=== PATIENT | female | born 1995 | race Caucasian/White ===

== ENCOUNTER → 2024-11-11 11:49 | Outpatient (REF) | payer MEDICAID, SELFPAY ==
--- NOTE | 2024-11-11 09:01 | PN.DIAED06 ---
Meal Plan - Gestational
- Breakfast
Gestational Diabetes Meal Plan Name: 2000 calories
Breakfast - Total Carbohydrate (grams): 45 (1 carb = 15 grams)
Breakfast - Starch Carbohydrate: 2 (carbs: starch, milk, fruit)
Breakfast - Fruit Carbohydrate: 0 (no fruit before noon)
Breakfast - Milk Carbohydrate: 1
Breakfast - Nonstarchy Vegetables: Yes
Breakfast - Meat/Protein: 1 (1 serving protein = 7 g)
Breakfast - Fat: 2 (1 serving fat = 5 g)
- Morning Snack
Morning Snack - Total Carbohydrate (grams): 30
Morning Snack - Starch Carbohydrate: 1
Morning Snack - Fruit Carbohydrate: 0 (no fruit before noon)
Morning Snack - Milk Carbohydrate: 1
Morning Snack - Nonstarchy Vegetables: Yes
Morning Snack - Meat/Protein: 0
Morning Snack - Fat: 0
- Lunch
Lunch - Total Carbohydrate (grams): 45
Lunch - Starch Carbohydrate: 1
Lunch - Fruit Carbohydrate: 1
Lunch - Milk Carbohydrate: 1
Lunch - Nonstarchy Vegetables: Yes
Lunch - Meat/Protein: 2
Lunch - Fat: 2
- Afternoon Snack
Afternoon Snack - Total Carbohydrate (grams): 30
Afternoon Snack - Starch Carbohydrate: 1
Afternoon Snack - Fruit Carbohydrate: 1
Afternoon Snack - Milk Carbohydrate: 0
Afternoon Snack - Nonstarchy Vegetables: Yes
Afternoon Snack - Meat/Protein: 1
Afternoon Snack - Fat: 0
- Dinner
Dinner - Total Carbohydrate (grams): 45
Dinner - Starch Carbohydrate: 2
Dinner - Fruit Carbohydrate: 1
Dinner - Milk Carbohydrate: 0
Dinner - Nonstarchy Vegetables: Yes
Dinner - Meat/Protein: 2
Dinner - Fat: 2
- Evening Snack
Evening Snack - Total Carbohydrate (grams): 45
Evening Snack - Starch Carbohydrate: 1
Evening Snack - Fruit Carbohydrate: 1
Evening Snack - Milk Carbohydrate: 1
Evening Snack - Nonstarchy Vegetables: Yes
Evening Snack - Meat/Protein: 1
Evening Snack - Fat: 0
--- NOTE | 2024-11-11 10:04 | PN.DIAED06 ---
Meal Plan - Gestational
- Breakfast
Gestational Diabetes Meal Plan Name: 1800 calories
Breakfast - Total Carbohydrate (grams): 30
Breakfast - Starch Carbohydrate: 1
Breakfast - Fruit Carbohydrate: 0
Breakfast - Milk Carbohydrate: 1
Breakfast - Nonstarchy Vegetables: Yes
Breakfast - Meat/Protein: 1
Breakfast - Fat: 2
- Morning Snack
Morning Snack - Total Carbohydrate (grams): 30
Morning Snack - Starch Carbohydrate: 1
Morning Snack - Fruit Carbohydrate: 0
Morning Snack - Milk Carbohydrate: 1
Morning Snack - Nonstarchy Vegetables: Yes
Morning Snack - Meat/Protein: 0.5
Morning Snack - Fat: 0
- Lunch
Lunch - Total Carbohydrate (grams): 45
Lunch - Starch Carbohydrate: 2
Lunch - Fruit Carbohydrate: 1
Lunch - Milk Carbohydrate: 0
Lunch - Nonstarchy Vegetables: Yes
Lunch - Meat/Protein: 2
Lunch - Fat: 1
- Afternoon Snack
Afternoon Snack - Total Carbohydrate (grams): 30
Afternoon Snack - Starch Carbohydrate: 1
Afternoon Snack - Fruit Carbohydrate: 1
Afternoon Snack - Milk Carbohydrate: 0
Afternoon Snack - Nonstarchy Vegetables: Yes
Afternoon Snack - Meat/Protein: 1
Afternoon Snack - Fat: 0
- Dinner
Dinner - Total Carbohydrate (grams): 45
Dinner - Starch Carbohydrate: 2
Dinner - Fruit Carbohydrate: 0
Dinner - Milk Carbohydrate: 1
Dinner - Nonstarchy Vegetables: Yes
Dinner - Meat/Protein: 2
Dinner - Fat: 2
- Evening Snack
Evening Snack - Total Carbohydrate (grams): 30
Evening Snack - Starch Carbohydrate: 1
Evening Snack - Fruit Carbohydrate: 0
Evening Snack - Milk Carbohydrate: 1
Evening Snack - Nonstarchy Vegetables: Yes
Evening Snack - Meat/Protein: 1
Evening Snack - Fat: 1
--- NOTE | 2024-11-11 10:58 | PN.DE ---
Diabetes Education
- -
11/11/2024 GESTATIONAL DIABETES CONSULT
Met with Ms. Rivero today for medical nutrition therapy. She is G1,P1 with an EWA of 12/14/2024
Explained glucose metabolism in body and what occurs during to cause increase blood sugar. Discussed importance of keeping BS well controlled to avoid complications to the baby during and after (macrosomia, hypoglycemia).
Discussed macronutrients, provided with 1800 carly GDM meal plan. Discussed physical activity, she walks her dog 30 minutes a day.
She states she also changed diet since finding out she has GSD. She has been eating a lot of salad, lean protein, non starchy vegetables.
I provided with a Contour Next glucometer kit. Reviewed proper testing technique, testing sites and testing pattern. She is aware to test FBS and 2 hr pp each meal. Expected results for FBS <95 mg/dl and 2 hr pp <120 mg/dl. Noted for blood sugar of
130 mg/dl 2 hr after breakfast this morning, she had an egg salad sandwich with white bread from a convenience store. Log sheet provided for her to record results, she will send a 3-day meal log with all her FBG and 2hr Post prandial glucose numbers
to this office for review. In addition, she will send all her glucose readings [facility] every Friday; she will be calling them today for an appointment.
She also mentioned she has HTN, has only been treated upon . States her last BS was 132/70's.
She will contact this office later today with her insurance card information. I explained we can submit an order for glucose testing supplies to her pharmacy ([facility] on [address] in [place]) once we have her insurance information. Also directed
her to [employer] glucose testing supplies if needed; explained she should purchase 150 test strips and lancets to last through delivery.
She was encouraged to reach out with any questions and if should she require insulin.
== END ==
LOC: DES 11:49
PROVIDERS: ATTENDING PHYSICIAN Obstetrics & Gynecology
DX: O24.419 Gestational diabetes mellitus in pregnancy, unspecified control (principal)
CPT/HCPCS: 99078

== ENCOUNTER → 2024-11-16 15:22 | Outpatient (REF) | payer MEDICAID, SELFPAY | LOC: PNTC 15:22 | PROVIDERS: ATTENDING PHYSICIAN Obstetrics & Gynecology | DX: O99.210 Obesity complicating pregnancy, unspecified trimester (principal); I11.9 Hypertensive heart disease without heart failure; O24.419 Gestational diabetes mellitus in pregnancy, unspecified control | CPT/HCPCS: 76815 ==

== ENCOUNTER → 2024-11-23 15:43 | Outpatient (REF) | payer MEDICAID, SELFPAY | LOC: PNTC 15:43 | PROVIDERS: ATTENDING PHYSICIAN Obstetrics & Gynecology | DX: O99.210 Obesity complicating pregnancy, unspecified trimester (principal); I10 Essential (primary) hypertension; O24.419 Gestational diabetes mellitus in pregnancy, unspecified control | CPT/HCPCS: 36415; 59025; 76818 ==

== ENCOUNTER → 2024-11-30 16:13 | Outpatient (REF) | payer MEDICAID, SELFPAY | LOC: PNTC 16:13 | PROVIDERS: ATTENDING PHYSICIAN Obstetrics & Gynecology | DX: O99.210 Obesity complicating pregnancy, unspecified trimester (principal); I10 Essential (primary) hypertension; O24.419 Gestational diabetes mellitus in pregnancy, unspecified control | CPT/HCPCS: 59025; 76818 ==

== ENCOUNTER 2024-12-06 19:47 | Inpatient (IN) | payer OTHER, SELFPAY ==
[2024-12-06 20:04] VITALS: BMI 39.2
[2024-12-06] MEDS: LR 1000 IV ×2 (20:32→22:18)
[2024-12-06 20:36] LABS: Glucose - Point of Care 156 mg/dl (70-99)
[2024-12-06 20:45] LABS: Hematocrit 35.7 % (37.0-47.0); Hemoglobin 12.6 g/dL (12.0-16.0); Mean Corp Hgb Conc. 35.3 g/dL (33.0-37.0); Mean Corpuscular Volume 89.9 fL (81.0-99.0); Nucleated Red Blood Cells % 0 %; Platelet Count 225 10^3/uL (130-400); Red Cell Dist. Width 12.6 % (11.5-14.5)
[2024-12-06 20:50] VITALS: BP 141/72
[2024-12-06 21:00] LABS: ALT (SGPT) 25 U/L (0-35); AST (SGOT) 20 U/L (14-36); Albumin 3.6 g/dl (3.5-5.0); Alkaline Phosphatase 110 U/L (38-126); Blood Urea Nitrogen 16 mg/dl (7-17); Calcium 8.9 mg/dl (8.4-10.2); Carbon Dioxide 19 mmol/L (22-30); Chloride 110 mmol/L (98-107); Estimated Creatinine Clearance > 125 ml/min; Glucose 134 mg/dl (70-99); Potassium 4.0 mmol/L (3.5-5.1); Sodium 136 mmol/L (135-145); Total Protein 6.4 g/dl (6.3-8.2); eGFR > 60.00
[2024-12-06 21:45] LABS: Glucose - Point of Care 129 mg/dl (70-99)
[2024-12-06] MEDS: CYTOTEC 25 MICROGRAM VAG (21:53)
[2024-12-06] MEDS: GLUCOPHAGE 500 MG PO (22:03)
[2024-12-06] MEDS: TRANDATE 100 MG PO (22:03)
[2024-12-07 01:46] LABS: Glucose - Point of Care 92 mg/dl (70-99)
[2024-12-07] MEDS: CYTOTEC 50 MICROGRAM PO ×4 (02:10→16:58)
[2024-12-07] MEDS: TUMS CHEWABLE TABLET 400 MG PO (02:15)
[2024-12-07] MEDS: LR 1000 IV ×4 (04:33→22:39)
[2024-12-07 05:50] LABS: Glucose - Point of Care 93 mg/dl (70-99)
[2024-12-07] MEDS: TRANDATE 100 MG PO ×2 (07:39→23:20)
[2024-12-07] MEDS: PRENATAL PLUS 1 TABLET PO (07:39)
[2024-12-07 09:50] LABS: Glucose - Point of Care 122 mg/dl (70-99)
[2024-12-07 12:08] LABS: Glucose - Point of Care 94 mg/dl (70-99)
[2024-12-07 17:50] LABS: Glucose - Point of Care 90 mg/dl (70-99)
[2024-12-07] MEDS: TRANDATE PO (20:12)
[2024-12-07 21:16] LABS: Glucose - Point of Care 86 mg/dl (70-99)
[2024-12-07] MEDS: CYTOTEC PO ×2 (22:37→23:07)
[2024-12-07] MEDS: GLUCOPHAGE 500 MG PO (22:39)
[2024-12-07] MEDS: PITOCIN 30 UNITS/NSS 500 ML IV (22:39)
[2024-12-07] MEDS: STADOL 1 MG IV (23:20)
[2024-12-07] MEDS: FLUSH (NSS) 2 FLUSH IV (23:22)
[2024-12-08 01:25] LABS: Glucose - Point of Care 90 mg/dl (70-99)
[2024-12-08 05:49] LABS: Glucose - Point of Care 96 mg/dl (70-99)
[2024-12-08] MEDS: LR 1000 IV (08:35)
[2024-12-08] MEDS: PRENATAL PLUS 1 TABLET PO (08:44)
[2024-12-08 10:03] LABS: Glucose - Point of Care 103 mg/dl (70-99)
[2024-12-08] MEDS: TRANDATE 100 MG PO ×2 (10:27→22:08)
[2024-12-08] MEDS: SUBLIMAZE 100 MCG EPIDURAL (10:53)
[2024-12-08] MEDS: FENTANYL/BUPIVACAINE 100 EPIDURAL ×2 (10:54→18:38)
[2024-12-08 14:01] LABS: Glucose - Point of Care 98 mg/dl (70-99)
[2024-12-08 17:54] LABS: Glucose - Point of Care 82 mg/dl (70-99)
[2024-12-08] MEDS: BICITRA 30 ML PO (20:06)
[2024-12-08] MEDS: TYLENOL 1000 MG PO (20:06)
[2024-12-08] MEDS: ANCEF 10 IV (20:06)
[2024-12-08] MEDS: ZITHROMAX INFUSION 250 IV (20:15)
[2024-12-08] MEDS: HEMABATE 250 MCG IM (20:43)
[2024-12-08 20:50] LABS: B.E. Cord ABG -1.2 mMOL/L; Cord ABG Comment CORD BLOOD; HCO3 Cord ABG 24.8 mmol/L; O2 Saturation % Cord ABG 58.4 %; PCO2 Cord ABG 45 mmHg; PO2 Cord ABG 28 mmHg; pH Cord ABG 7.35
[2024-12-08 20:54] LABS: B.E. Cord ABG -2.3 mMOL/L; HCO3 Cord ABG 23.7 mmol/L; O2 Saturation % Cord ABG 58.5 %; PCO2 Cord ABG 44 mmHg; PO2 Cord ABG 29 mmHg; pH Cord ABG 7.34
[2024-12-09] MEDS: TORADOL 15 MG IV ×4 (00:17→19:15)
--- NOTE | 2024-12-09 02:52 | OR.RPT ---
Operative Report
Operative Report
Date of procedure: 12/08/2024
Preop diagnosis: IUP @39.1, GDMA2, chronic HTN, non-reassuring heart tones
Postop diagnosis: same
Procedure: Primary low transverse section
Surgeon: Dejuan
Anesthesia: Epidural, [place]
QBL: 995mL
Findings: viable female born at 2032, Apgars 8/8, uterine atony responded to Hemabate and TXA, normal appearing bilateral fallopian tubes and ovaries
Complications: none
Indication: Patient is a 29yo who presented to Labor and Delivery on 12/06 for induction of labor for chronic hypertension and GDMA2. She had been non-compliant with her care. Growth ultrasound was performed on admission and estimated
weight was 8lbs. Her cervix was fingertip and her induction was started with Cytotec. She continued with Cytotec through the night. She then found to be one and a Cook catheter was placed. Pitocin was started. The Cook catheter was removed after 12
hours and she was 3. Pitocin was continued and she was ruptured for clear fluid. The heart rate tracing intermittently had periods of minimal variability. Patient continued to be repositioned and Pitocin increased. After several hours, her
exam remained unchanged and there continued to be minimal variability. Primary section was recommended for non-reassuring heart tones and remote from delivery. Risks, benefits and alternatives reviewed and all questions answered.
Consents were signed.
Procedure: Patient was taken to the operating room where epidural was bolused and found to be adequate. 2g of Ancef and 500mg azithromycin were given for antibiotic prophylaxis. The abdomen was prepped with ChloraPrep. The patient was draped in the
normal sterile fashion. She was placed in the dorsal supine position with a left lateral tilt. A Pfannenstiel incision was made with a 10 blade and carried down to the fascia with a scalpel. Hemostasis achieved with Bovie. The fascia was incised and
dissected laterally with Mack scissors. The superior aspect of the fascia was grasped with Tanner clamps. The underlying rectus fascia was sharply dissected with Mack scissors. In a similar fashion the inferior aspect of the fascia was elevated with
Tanner clamps and the rectus muscle was dissected off with Mack scissors. The rectus muscles were down the midline to the level of the pubic symphysis with manual dissection. The peritoneum was bluntly entered and extended using manual
traction and Metzenbaum scissors.
Mata retractor and bladder blade were placed revealing good visualization of the bladder. The vesicouterine peritoneum was identified. A thin lower uterine segment was noted. The lower uterine segment was incised with a scalpel. Clear amniotic
fluid noted at entry. The uterine incision was extended bluntly with lateral and upward traction.
The fetus was in cephalic presentation. The head was elevated out of the pelvis with special attention paid to avoid using the uterine incision as a fulcrum. Gentle fundal pressure was applied once the head was brought to the incision. The head
delivered through the hysterotomy. The rest of the delivered without difficulty. Delayed cord clamping was performed. The infant was handed off to the chemical operations and training. IV oxytocin was started to facilitate uterine contractions. The placenta was
delivered with fundal massage and gentle downward traction. The uterus was exteriorized. Allis clamps were placed at the apices of the hysterotomy. The inside of the uterus was wiped with a lap sponge to assure complete removal of placental
membranes. Fundal massage was performed and uterus was boggy. Hemabate IM and TXA were given with improvement in tone. The uterine incision was closed with 0 Vicryl in a running locked fashion. A horizontal imbricating stitch was done on the
hysterotomy with 0 Vicryl. The hysterotomy was inspected and noted to be hemostatic. The uterus was placed back in the abdomen. Blood clots and fluid were wiped out of the abdomen and pelvis with moist laparotomy sponges. The hysterotomy was
examined and was hemostatic.
The rectus muscles were examined and were hemostatic. The fascial layer was closed in a running continuous fashion using 0 Vicryl. The subcutaneous tissue was copiously irrigated and any small bleeding vessels were cauterized with Bovie cautery. The
subcutaneous tissue was reapproximated in a running continuous fashion with 2-0 Plain. The skin was closed with 4-0 Vicryl in a subcuticular fashion and covered with skin glue. The patient tolerated the procedure well. All sponge and instrument
counts were correct times two. The patient was taken to the recovery room in stable condition. Costa catheter was draining clear urine at the end of the procedure.
--- NOTE | 2024-12-09 03:12 | HPS.HSE ---
Family Physician
-
Family Physician: Savita Samuels DO
Chief Complaint
-
induction of labor
History of Present Illness
HPI: Patient is a 29yo @38.6 who presented to Labor and Delivery for induction of labor for GDMA2 and cHTN. She has no complaints on admission.
complications
- cHTN, on labetalol 200mg BID
- GDMA2, on Metformin 500mg qHS
- noncompliant
PMHx: obesity, cHTN
Meds: Metformin 500mg qHS, labetalol 200mg BID, PNV, bASA
Surghx: denies
NKDA
Socialhx: denies tobacco, etoh or illicit drug use
Famhx: non-contributory
labs: O+, Ab neg, Rubella immune, RPR non-reactive, HBsAg neg, HIV neg, Hep C neg, GCCT neg, GBS neg
Medical History
Past Medical History
Past Medical History: Reports HTN
Past Surgical History: Reports None
Social History
Tobacco: Non-smoker
Alcohol: None
Drug: None
Family History
Family History: Not pertinent
Allergies / Home Medications
Allergies reflects when Allergies were last updated in [facility].
Home Medications with original date entered in [facility]
Allergy/Medication List:
NKDA
Meds: Metformin 500mg qHS, PNV, labetalol 200mg BID, bASA
Review of Systems
-
A 12 point ROS was completed and negative except as noted: Yes
Physical Exam
Vital Signs
Vital Signs
Temp Pulse Resp BP
98.2 F 78 18 127/82
12/06/24 20:50 12/08/24 22:08 12/06/24 20:50 12/08/24 22:08
Physical Exam
General: Well Developed and Well Nourished
HEENT: NormoCephalic
Respiratory: Non Labored Respirations
Cardiac: Regular Rhythm
Neuro: Awake and Alert
Psych: Calm
Laboratory Results
-
12/06/24 20:34
Laboratory Results
Total Bilirubin 0.2 mg/dl (0.2-1.3) 12/06/24 20:34
AST 20 U/L (14-36) 12/06/24 20:34
ALT 25 U/L (0-35) 12/06/24 20:34
Alkaline Phosphatase 110 U/L (38-126) 12/06/24 20:34
Impression/Plan
-
IMPRESSION:
Patient is a 29yo who presented to Labor and Delivery for induction of labor for GDMA2 and cHTN
PLAN:
- Patient had been non-compliant with her care and did not have a recent growth US. Growth US was performed on admission and EFW was 8lb. BPP was 8/8
- Induction of labor was started with Cytotec 25mcg placed PV
- BG checked q4 hours while in latent labor with goal BG <120. Insulin drip to be started if BG not well controlled
- Continue Labetalol 200mg BID
[2024-12-09 05:53] LABS: Hematocrit 29.9 % (37.0-47.0); Hemoglobin 10.8 g/dL (12.0-16.0); Mean Corp Hgb Conc. 36.1 g/dL (33.0-37.0); Mean Corpuscular Volume 90.1 fL (81.0-99.0); Platelet Count 224 10^3/uL (130-400); Red Cell Dist. Width 12.2 % (11.5-14.5)
--- NOTE | 2024-12-09 07:46 | W.PN.ANS.POP ---
Anesthesia Post Operative
- Anesthesia Post Op Note
Vital Signs Stable-See Nursing Note: Yes
Airway Patent: Yes
Adequate Pain Control: Yes
Change in Mental Status: No
Current Postoperative Nausea & Vomiting: No
Anesthesia Complications: No
General Anesthetic Recall: No
Unplanned Admission: No
Post Op Hydration Adequate: Yes
[2024-12-09] MEDS: COLACE 100 MG PO (07:49)
[2024-12-09] MEDS: MYLICON 80 MG PO (07:49)
[2024-12-09] MEDS: PRENATAL PLUS 1 TABLET PO (07:49)
[2024-12-09] MEDS: TRANDATE 100 MG PO ×2 (07:50→20:02)
[2024-12-09 14:28] LABS: Syphilis/T. pallidum Ab Reflex Negative (Negative)
[2024-12-09] MEDS: COLACE PO (20:23)
[2024-12-10] MEDS: TYLENOL 650 MG PO ×3 (04:26→20:08)
[2024-12-10] MEDS: TUMS CHEWABLE TABLET 400 MG PO (04:33)
[2024-12-10] MEDS: TRANDATE 100 MG PO (08:07)
[2024-12-10] MEDS: COLACE 100 MG PO ×2 (08:07→20:07)
[2024-12-10] MEDS: PRENATAL PLUS 1 TABLET PO (08:07)
[2024-12-10] MEDS: FEOSOL 325 MG PO ×2 (08:08→20:07)
[2024-12-10] MEDS: MOTRIN 600 MG PO (08:30)
[2024-12-10] MEDS: TRANDATE 200 MG PO (20:07)
[2024-12-11] MEDS: FEOSOL 325 MG PO (07:56)
[2024-12-11] MEDS: COLACE 100 MG PO (07:56)
[2024-12-11] MEDS: PRENATAL PLUS 1 TABLET PO (07:57)
[2024-12-11] MEDS: TRANDATE 200 MG PO (08:36)
--- NOTE | 2024-12-11 10:13 | W.DS.TRANS ---
DC Summary - [employer]
-
Discharge Instructions:
Discharge Diagnosis/Procedures Section
Diet No restrictions
Instructions:
Stand-Alone Forms: LDRP Delivery
LDRP Hypertensive Disorders
Changes to Home Medications: No
Discharge Medications:
DC Medications w/original date entered in code-laboration
1 tab PO DAILY 12/06/24
acetaminophen 325 mg tablet 650 mg (2 x 325 mg) PO Q4HPRN PRN mild pain #0 tabs 12/11/24
docusate sodium 100 mg capsule 100 mg PO BID #0 caps 12/11/24
ferrous sulfate 325 mg (65 mg iron) tablet (FeroSul) 325 mg PO DAILY #30 tabs 12/11/24
ibuprofen 600 mg tablet 600 mg PO Q6HPRN PRN cramps #45 tabs 12/11/24
labetalol 200 mg tablet 200 mg PO BID #60 tabs 12/11/24
Home Medication Changes
Pending Results: No
== END 2024-12-11 14:04 | disposition home or self-care (01) | DRG 787 ==
LOC: LDRP 19:47
PROVIDERS: Student in an Organized Health Care Education/Training Program; ADMITTING PHYSICIAN Obstetrics & Gynecology; FAMILY PHYSICIAN Family Medicine
PROC: 3E0P7VZ Introduction of Hormone into Female Reproductive, Via Natural or Artificial Opening (ICD-10-PCS; 2024-12-06)
PROC: 10D00Z1 Extraction of Products of Conception, Low, Open Approach (ICD-10-PCS; 2024-12-08)
DX: O24.425 Gestational diabetes mellitus in childbirth, controlled by oral hypoglycemic drugs (principal); O10.02 Pre-existing essential hypertension complicating childbirth; O76 Abnormality in fetal heart rate and rhythm complicating labor and delivery; O99.214 Obesity complicating childbirth; O75.89 Other specified complications of labor and delivery; Z3A.39 39 weeks gestation of pregnancy; Z37.0 Single live birth; Z91.148 Patient's other noncompliance with medication regimen for other reason; Z79.84 Long term (current) use of oral hypoglycemic drugs; Z91.198 Patient's noncompliance with other medical treatment and regimen for other reason
CPT/HCPCS: 36415; 76805; 76819; 80053; 82803; 82962; 85025; 85027; 86780; 86850; 86900; 86901; 88307